=== PATIENT | female | born 1995 | race American Indian/Alaskan Native ===

== ENCOUNTER 2025-08-19 11:12 | Inpatient (IN) | payer MEDICAID ==
[~2025-08-19] VITALS: Ht 162.6 cm; Wt 68.0 kg
[2025-08-19] VITALS (14 sets, daily range): BP systolic 123–143; BP diastolic 71–86; PULSE 60–79; RESP 14–17; TEMP 98.3–98.5; O2SAT 94–100
[2025-08-19] MEDS ORDERED: DERMOPLAST 60ML BOTTLE TOP PRN (11:45)
[2025-08-19] MEDS ORDERED: WITCH HAZEL-GLYCERIN PAD TOP PRN (11:45)
[2025-08-19] MEDS ORDERED: PHISODERM TOP SOLN 240ML BTL TOP PRN (11:45)
[2025-08-19 12:16] LABS: Hemoglobin 10.3 g/dL (12.2-16.2)
[2025-08-19 12:18] LABS: Hematocrit 33.3 % (36.0-46.0); Mean Corpuscular Hemoglobin 22.4 pg (28.0-32.0); Mean Corpuscular Volume 72.2 fL (80.0-100.0); Nucleated Red Blood Cells % 0.2 %
[2025-08-19 12:32] LABS: Albumin 3.8 g/dL (3.2-4.8); Anion Gap 12 (5-15); BUN/Creatinine Ratio 7.3 (10.0-20.0); Carbon Dioxide 20 mmol/L (20-31); Chloride 107 mmol/L (98-107); Glucose 87 mg/dL (74-106); Potassium 3.8 mmol/L (3.5-5.1); Sodium 139 mmol/L (136-145); Total Protein 6.7 g/dL (5.7-8.2)
[2025-08-19 12:33] LABS: Bilirubin, Total 0.4 mg/dL (0.2-1.0)
[2025-08-19 12:36] LABS: Alanine Aminotransferase 86 U/L (7-40); Alkaline Phosphatase 439 U/L (46-116); Blood Urea Nitrogen 7 mg/dL (9-23); Calcium 7.7 mg/dL (8.7-10.4)
[2025-08-19] MEDS: LACTATED RINGER'S 1,000 ML IV SCH (12:49)
[2025-08-19 13:15] LABS: INR 1.02 (0.9-1.15); Partial Thromboplastin Time 34.3 SEC (24.5-34.5); Prothrombin Time 10.8 sec (9.3-11.8)
[2025-08-19] MEDS: ceFAZolin 2 GM/D5W50ml 50 ML IV ONE (13:20)
[2025-08-19] MEDS ORDERED: fentaNYL CITRATE 100 MCG/2 ML VL ONE (13:31)
[2025-08-19] MEDS ORDERED: ONDANSETRON HCL 4 MG/2 ML VIAL ONE (13:31)
[2025-08-19] MEDS ORDERED: MORPHINE SULF PF 5 MG/10 ML VIAL ONE (13:31)
[2025-08-19] MEDS ORDERED: KETOROLAC TROMETH 30 MG/ML 1ML VIAL ONE (13:31)
[2025-08-19 13:32] LABS: Urine Protein, UAD Negative (Negative)
[2025-08-19] MEDS ORDERED: BUPIVACAINE/DEXTROSE MPF 0.75% 2 ML AMP IT ONE (13:32)
--- NOTE | 2025-08-19 13:32 | DVH ---
LIMITED OB ULTRASOUND > 14 WKS: HISTORY: No care. TECHNIQUE: Multiple real-time grayscale images of the gravid uterus with duplex Doppler color flow and M-mode spectral analysis. COMPARISON: None FINDINGS: IUP single live fetus at 36 weeks 5 days based on composite averages of the BPD, head circumference, abdominal circumference and femur length. BPD measures 9.04 cm, corresponding to an estimated gestational age of 36 weeks 4 days. HC measures 32.28 cm, corresponding to an estimated gestational age of 36 weeks 3 days. AC measures 34.07 cm, corresponding to an estimated gestational age of 38 weeks 0 days. FL measures 6.99 cm, corresponding to an estimated gestational age of 35 weeks 6 days. Estimated weight 3131 grams, corresponding to the 16th percentile for gestational age. heart rate 145 beats per minute. MICHAELLE 6.1 cm MVP 2.5 cm Cervix is not visualized. Cephalic presentation Grade 3 placenta without previa or abruption, in anterior position. Attempted to evaluate anatomy, although limited evaluation due to gestational age and patient in active labor. 4-chamber heart was demonstrated. Bilateral kidneys appear within normal limits. Bladder appears normal. stomach appears distended with debris. IMPRESSION: 1. IUP single live fetus at 36 weeks 5 days AUA corresponding to an PAULY of 09/11/2025. 2. stomach appears distended with debris. 3. MICHAELLE measures 6.1 cm with MVP of 2.5 cm. 4. Limited anatomy as described above. 5. Refer to the separately dictated BPP exam report.
--- NOTE | 2025-08-19 13:34 | DVH ---
BIOPHYSICAL PROFILE HISTORY: UC prev. c/s TECHNIQUE: Multiple transabdominal real-time grayscale sonographic images through the gravid uterus of the fetus with duplex Doppler color flow and M-mode spectral analysis FINDINGS: BIOPHYSICAL PROFILE: breathing score: 2 movement score: 2 tone score: 2 Quantitative MICHAELLE score: 2 (MICHAELLE: 6.1 cm, mvp: 2.5 cm.) Total score: 8/8 The cervix Single live fetus in presentation. heart rate 178 beats per minute. Anterior Grade 3 placenta without previa or abruption Single live fetus at 39 weeks 6 days Biophysical profile score 8/8 corresponding to an PAULY of 08/20/2025 Estimated weight not calculated g IMPRESSION: 1. Biophysical profile score: 8/8 2. FHR: 178 bpm
[2025-08-19 13:50] LABS: Amphetamine Screen, Urine Neg (NEGATIVE); Barbiturate Scree,Urine Neg (NEGATIVE); Benzodiazephine Screen, Urine Neg (NEGATIVE); Cannabinoid Screen, Urine Neg (NEGATIVE); Cocaine Screen, Urine Neg (NEGATIVE); Opiate Scree,Urine Neg (NEGATIVE); Phencyclidine Screen, Urine Neg (NEGATIVE)
[2025-08-19 14:24] LABS: Protein, Urine 12.8 mg/dL (1-14)
[2025-08-19] MEDS ORDERED: HYDROmorphone HCL 2 MG/ML VL/or syr IV PRN (14:45)
[2025-08-19] MEDS ORDERED: diphenhydrAMINE HCL 50 MG/1 ML VL IV PRN (14:45)
[2025-08-19] MEDS ORDERED: NALOXONE HCL 0.4 MG/ML VIAL IV PRN (14:45)
[2025-08-19] MEDS: NALBUPHINE HCL 10 MG/1ml INJECTION IV ONE (14:45)
--- NOTE | 2025-08-19 15:16 | DVHHP2 ---
OB CC & HPI Date Date of Admission: Aug 19, 2025 Patient Identification: : 5 Para: 3 EDC: Aug 19, 2025 EGA: Patient has no idea she did have some ultrasounds patent no care. Chief Complaints: Reason for admission: active labor (We active labor 2-3 cm dilated 80% effaced membranes intact), section Indication for induction: other (-section early active labor) Indication for : desires repeat Admission Nurse Assessment Rev: Yes History of Present Complaints She denies smoke alcohol or drugs but blood tests show she has had failure to phentermine. Past Medical History Cardiac: No pertinent Hx Pulmonary: No pertinent Hx Central Nervous System: No pertinent Hx GI: No pertinent Hx Hemotology/Oncology: No pertinent Hx Hepatobiliary: No pertinent Hx Psychiatric: No pertinent Hx Musculoskeletal: No pertinent Hx Rheumotologic: No pertinent Hx Infectious Disease: No peritnent Hx ENT: No pertinent Hx Renal/: No pertinent Hx Endocrine: No pertinent Hx Dermatology: No pertinent Hx Past Surgical History: OB History OB History Care: None Ultrasounds: No ultrasounds Obstetrical Complications: None Medical Complications: None Allergies: Coded Allergies: NO KNOWN ALLERGIES (Unverified , 08/19/25) Current Medications Current Medications Medications (Trade) Dose Ordered Sig/Rajesh Route PRN Reason Start Time Stop Time Status Last Admin Lactated Ringer's 1,000 ml @ 125 mls/hr Q8H IV 08/19/25 11:45 08/19/25 12:49 Witch Carline (Tucks) 1 pad PRN PRN TOP PERINEAL AREA DISCOMFORT 08/19/25 11:45 Sodium Lauryl Sulfate (Phisoderm) 240 ml PRN PRN TOP PERINEAL AREA DISCOMFORT 08/19/25 11:45 Benzocaine (Dermoplast) 1 applic PRN PRN TOP PERINEAL AREA DISCOMFORT 08/19/25 11:45 Diphenhydramine HCl (Benadryl Injection) 25 mg Q4HP PRN IV FOR ITCHING 08/19/25 14:45 Ondansetron HCl (Zofran) 4 mg Q4HP PRN IV NAUSEA / VOMITING 08/19/25 14:45 Naloxone HCl (Narcan) 0.2 mg Q5M PRN IV For respirations < than 10/min 08/19/25 14:45 08/19/25 14:51 DC Hydromorphone HCl (Dilaudid Injection) 0.5 mg Q15M PRN IV SEVERE PAIN (7-10 PAIN SCALE) 08/19/25 14:45 08/19/25 15:16 Family & Social History Family/Social History Past Family/Social History: Contributory Blood Type: A+ Rubella: unknown RPR/VDRL: Unknown GBS Status: Unknown HBsAG: Unknown Review of Systems Constitutional: No symptom reported Ears, Nose, & Throat: No symptom reported Eyes: No symptom reported Pulmonary/Respiratory: No symptom reported Cardiovascular: No symptom reported Gastrointestinal: No symptom reported Genitourinary: No symptom reported Musculoskeletal: No symptom reported Skin: No symptom reported Psychiatric: No symptom reported Endocrine: No symptom reported Hemotologic/Lymphatic: No symptom reported OB Admission Exam Physical Exam Vitals: Vital Signs Date Time Temp Pulse Resp B/P (MAP) Pulse Ox O2 Delivery O2 Flow Rate FiO2 08/19/25 15:02 65 16 118/62 (80) 100 08/19/25 14:32 Room Air 08/19/25 14:32 98.0 98.0 HEENT: TMs Normal, Fontanelles Normal, Nasal Mucosa Normal, Eyes non-injected, Oropharynx Normal, PERRLA, Moist Membranes, EOMI Heart: Rhythm Normal Lungs: Clear Abdomen: Non tender Extremities: Normal Reflexes: Normal Cervical Dilatation: 3cm Effacement: 75% Station: -2 Membranes: Intact Heart Rate: 130's Accelerations: Accelerations Present Decelerations: No Decelerations Short Term Variability: Present Group Home Variability: Average (6-25) Contractions on Admission: None Intensity: Moderate OB Plan Plan Admitting Diagnosis: Prev. C/S in labor, Anemia, Fentanyl positive tox screen Plan: Section Other Plan: Services consult for safe environment for infant. RUFUS CEBALLOS DO Aug 19, 2025 15:16
--- NOTE | 2025-08-19 15:26 | DVHOP2 ---
Operative Report - 2 Report Details Date: 08/19/25 Preop Diagnosis: Unknown weeks gestation appears to be late 3rd trimester. Early active labor membranes intact previous -section Postop Diagnosis: Same moderate scar tissue Surgeon: Ankita Ceballos Anesthesiologist: JUAN Anesthesia: Regional Drains: Jeff catheter Implant: None Consent: The patient was informed of the risks and benefits of the procedure. These include but are not limited to complications of anesthesia, postoperative infection, incomplete relief of symptoms, recurrence of symptoms, damage to blood vessels, nerves and tendons, deep venous thrombosis, pulmonary embolism and possible need for repeat surgery in the future. Patient understands risks and as this complications not limited infection bleeding anesthesia acute chronic pain damage to adjacent organs bowel bladder ureters blood vessels and nerves. She understands the risks associated with blood transfusion not limited a HIV drug blood transfusion reaction her hepatitis. She has had the procedure before all questions answered and encouraged. Patient and baby's father adamantly wants to proceed. Complications: None Estimated Blood Loss: 650 cc Fluids: See anesthesia log Findings: Thick meconium, baby skin stained for meconium, Apgars 7 8 vigorous cry and tone on delivery Indications for Surgery: Review of -section early active labor Name of Procedure Performed Repeat low transverse section Procedure Details Procedure Details: Patient taken the operating room placed in sitting position spinal placed without difficulty she was then placed left lateral tilt prepped draped sterile fashion low Pfannenstiel made the scalpel through old scar down to the rectus fascia nicked in midline carried laterally vesicouterine peritoneum was entered with moderate difficulty and extreme care to avoid bladder damage peritoneal incision was extended vesicouterine peritoneum was taken off the lower uterine segment and the lower uterine segment was hourglassing very thin used a scalpel the injured gently and carefully entering the chorion amniotic placental sac. Fluid was copiously thick meconium. One hand placed lower uterine segment and infant's head and shoulders delivered without difficulty DeLee suctioned was performed immediate umbilical clamp was placed handed off to awaiting respiratory and nurses. Initially infant had 7 with vigorous tone on delivery. At this point umbilical blood sample was taken in an attempt to get a blood gas was tried through the cord but there was scant blood there most likely unsuccessful. This point placenta removed uterus exteriorized cleared of all clots and debris irrigated and the internal os was opened and assured that it was draining and 3 cm dilated. This point the hysterotomy incision was closed with 2 layers of 0 Vicryl 2nd layer incorporated the bladder vesical broad ligament flap. When complete hemostasis this point EBL 650 we cleared both gutters posterior cul-de-sac of all clots and debris placed the uterus inside reinspected lower uterine segment was the complete hemostasis instrument sponge lap count correct x1 this point peritoneum closed running continuous 2-0 Vicryl rectus fascia closed with a running continuous PDS the Camper's Carmella's fascia was undermined with Bovie secondary to severe scarring and then the Camper's Carmella's fascia was approximated with 2-0 chromic interrupted and the skin was closed with running continuous of 3-0 Prolene benzoin Steri-Strips placed ABD pad and pressure dressing placed as well as abdominal binder. Patient taken recovery room stable condition infant taken to nursery were certified surgical tech/first assistant while evaluate and treat. Specimen: Placenta, umbilical blood cord sampling Condition Good Disposition PACU RUFUS CEBALLOS DO Aug 19, 2025 15:26
[2025-08-19] MEDS: LACT. RINGERS/OXYTOCIN 20UNITS 1,000 ML IV ONE (17:00)
[2025-08-19] MEDS: ACETAMINOPHEN IV 1000 MG/100ML (10MG/ML) IV PRN (17:13)
[2025-08-19] MEDS ORDERED: LORazepam 2MG/ML-1ML VIAL IV ONE (17:45)
[2025-08-19] MEDS: ONDANSETRON HCL 4 MG/2 ML VIAL IV PRN (18:38)
[2025-08-19] MEDS: MAGNESIUM SULFATE 100 ML IV ONE (18:54)
[2025-08-19] MEDS: MAGNESIUM SULFATE 40MG/ML 1,000 ML IV SCH (19:32)
[2025-08-19] MEDS: FAMOTIDINE (10MG/ML) 2ML VL IV PRN (19:48)
[2025-08-19] MEDS: ceFAZolin 1GM/50ML 50 ML IV SCH (21:45)
[2025-08-19] MEDS ORDERED: KETOROLAC TROMETH 30 MG/ML 1ML VIAL IV PRN (22:30)
[2025-08-20] VITALS (13 sets, daily range): BP systolic 121–136; BP diastolic 58–87; PULSE 70–87; RESP 14–18; TEMP 97.4–98.5; O2SAT 96–99
--- NOTE | 2025-08-20 01:37 | DVHPN2 ---
Chief Complaints Patient reports: No new complaints, Feels better Nursing reports: No new complaints, No chest pain, No dizziness, No cough Objective Vitals Vital Signs Date Time Temp Pulse Resp B/P (MAP) Pulse Ox O2 Delivery O2 Flow Rate FiO2 08/19/25 19:30 16 96 Room Air 08/19/25 17:45 69 135/86 (102) 08/19/25 15:50 98.5 98.5 Medications Current Medications Medications (Trade) Dose Ordered Sig/Rajesh Route PRN Reason Start Time Stop Time Status Last Admin Acetaminophen (Ofirmev) 1,000 mg Q8HP PRN IV MODERATE PAIN (4-6 PAIN SCALE) 08/19/25 17:00 08/20/25 16:59 08/20/25 01:18 Benzocaine (Dermoplast) 1 applic PRN PRN TOP PERINEAL AREA DISCOMFORT 08/19/25 11:45 Cefazolin Sodium 50 ml @ 100 mls/hr Q8H IV 08/19/25 22:00 08/20/25 14:29 08/19/25 21:45 Diphenhydramine HCl (Benadryl Injection) 25 mg Q4HP PRN IV FOR ITCHING 08/19/25 14:45 Famotidine (Pepcid Injection) 20 mg Q12HR PRN IV ACID REFLUX 08/19/25 19:15 08/19/25 19:48 Ketorolac Tromethamine (Toradol Injection) 30 mg Q6HPRN PRN IV SEVERE PAIN (7-10 PAIN SCALE) 08/19/25 22:30 08/24/25 22:29 Lactated Ringer's 1,000 ml @ 125 mls/hr Q8H IV 08/19/25 11:45 08/19/25 21:38 Magnesium Sulfate 1,000 ml @ 50 mls/hr Q20H IV 08/19/25 17:45 08/19/25 19:32 Ondansetron HCl (Zofran) 4 mg Q4HP PRN IV NAUSEA / VOMITING 08/19/25 14:45 08/19/25 18:38 Sodium Lauryl Sulfate (Phisoderm) 240 ml PRN PRN TOP PERINEAL AREA DISCOMFORT 08/19/25 11:45 Witch Carline (Tucks) 1 pad PRN PRN TOP PERINEAL AREA DISCOMFORT 08/19/25 11:45 General: Normal Head/Eyes: Normal Neck: Normal Lungs: Normal Cardiovascular: Normal Abdominal: Normal (CLEAN DRY AND INTACT NO SIGN OF INFECTION MINIMAL LOCHIA) Musculoskeletal: Normal Extremities: Normal Skin: Normal Neurological: Normal Studies Laboratory Tests 08/19/25 12:04 Test 08/19/25 12:04 Range/Units Serum Glucose 87 74-106 mg/dL Ass/Plan Assessment POSTOP DAY 1 STABLE IMPROVED Plan [facility]. RUFUS CEBALLOS DO Aug 20, 2025 01:37
[2025-08-20 07:30] LABS: Hemoglobin 9.5 g/dL (12.2-16.2); Mean Corpuscular Hemoglobin 23.0 pg (28.0-32.0)
[2025-08-20 07:32] LABS: Hematocrit 29.7 % (36.0-46.0); Mean Corpuscular Volume 72.2 fL (80.0-100.0)
[2025-08-20 09:13] LABS: Anisocytosis Slight; Total Cells Counted 100.0 (100)
[2025-08-20] MEDS ORDERED: HYDROcodone-ACET 5/325MG TAB PO PRN ×2 (11:30)
[2025-08-20] MEDS: ceFAZolin 2 GM/D5W50ml 50 ML IV SCH (13:38)
[2025-08-20] MEDS: SIMETHICONE 80 MG CHEWABLE TABLET PO SCH (13:39)
[2025-08-20 14:48] LABS: Hematocrit 31.9 % (36.0-46.0)
[2025-08-20 14:51] LABS: Hemoglobin 10.0 g/dL (12.2-16.2); Mean Corpuscular Hemoglobin 22.6 pg (28.0-32.0); Mean Corpuscular Volume 72.1 fL (80.0-100.0)
[2025-08-20 15:16] LABS: Albumin 3.4 g/dL (3.2-4.8); Anion Gap 13 (5-15); BUN/Creatinine Ratio 10.0 (10.0-20.0); Carbon Dioxide 21 mmol/L (20-31); Chloride 105 mmol/L (98-107); Potassium 4.3 mmol/L (3.5-5.1); Sodium 139 mmol/L (136-145); Total Protein 5.9 g/dL (5.7-8.2)
[2025-08-20 15:17] LABS: Alanine Aminotransferase 62 U/L (7-40); Alkaline Phosphatase 365 U/L (46-116); Bilirubin, Total 0.2 mg/dL (0.2-1.0); Blood Urea Nitrogen 9 mg/dL (9-23); Calcium 7.5 mg/dL (8.7-10.4); Glucose 126 mg/dL (74-106)
[2025-08-20 15:33] LABS: Total Cells Counted 100.0 (100)
--- NOTE | 2025-08-20 16:24 | DVHINCON2 ---
Date of service: Aug 20, 2025 Referring Physician fabiana NOBLE Reason for Consultation concern for opiate withdrawal History of Present Illness HPI on admit: Unknown weeks gestation appears to be late 3rd trimester. Early active labor membranes intact previous -section PMHx - opiate addiction, no other known PMHx 29 female with history opiate dependence, here for late 3rd trimester contractions, early active labor s/p C-sx delivery. post-op noted to have some concern for opiate withdrawal. hospitalist consulted. Past Medical History opiate dependence Allergies: Coded Allergies: NO KNOWN ALLERGIES (Unverified , 08/19/25) Current Medications Current Medications Medications (Trade) Dose Ordered Sig/Rajesh Route PRN Reason Start Time Stop Time Status Last Admin Cefazolin Sodium 50 ml @ 100 mls/hr Q8H IV 08/19/25 22:00 08/20/25 11:34 DC 08/20/25 05:37 Acetaminophen (Ofirmev) 1,000 mg Q8HP PRN IV MODERATE PAIN (4-6 PAIN SCALE) 08/19/25 17:00 08/20/25 11:34 DC 08/20/25 10:50 Magnesium Sulfate 1,000 ml @ 50 mls/hr Q20H IV 08/19/25 17:45 08/20/25 11:34 DC 08/19/25 19:32 Famotidine (Pepcid Injection) 20 mg Q12HR PRN IV ACID REFLUX 08/19/25 19:15 08/20/25 11:34 DC 08/20/25 08:31 Ketorolac Tromethamine (Toradol Injection) 30 mg Q6HPRN PRN IV SEVERE PAIN (7-10 PAIN SCALE) 08/19/25 22:30 08/20/25 11:34 DC Cefazolin Sodium/ Dextrose 50 ml @ 50 mls/hr Q8HR IV 08/20/25 14:00 08/20/25 13:38 Docusate Sodium (Colace Capsule) 100 mg Q12HR PO 08/20/25 22:00 Dimethicone (Mylicon Tab) 80 mg QID PO 08/20/25 12:00 08/20/25 13:39 Ibuprofen (Motrin Tablet) 800 mg Q8HP PRN PO BREAKTHROUGH PAIN 08/20/25 14:00 Acetaminophen/ Hydrocodone Bitart ([place] 5/325MG Tab) 1 tab Q4HPRN PRN PO FOR PAIN 1-6 08/20/25 11:30 Acetaminophen/ Hydrocodone Bitart ([place] 5/325MG Tab) 2 tab Q4HPRN PRN PO FOR PAIN 7-10 08/20/25 11:30 Famotidine (Pepcid Tablet) 20 mg Q12HR PRN PO ACID REFLUX 08/20/25 11:30 Review of Systems ROS: abdominal pain at srugerical site Vital Signs Vital Signs Date Time Temp Pulse Resp B/P (MAP) Pulse Ox O2 Delivery O2 Flow Rate FiO2 08/20/25 15:00 97.7 80 16 132/75 (94) 98 97.7 08/20/25 07:30 Room Air Physical Exam GEN: Healthy appearing, well-developed, NAD. HEENT: NC/AT; MMM. CV: RRR, no m/r/g. LUNGS: CTAB, no w/r/c. ABD: surgival abdominal scar healing well CDI, normal BS. EXT: skin Warm, well perfused. no rashes. No clubbing, cyanosis, or edema. NEURO: Ambulating with no limitations. No focal deficits. Labs/Diagnostic Data Labs Test 08/20/25 14:30 08/20/25 06:54 08/19/25 13:00 08/19/25 12:04 Range/Units White Blood Count 31.2 *H 4.4-10.8 10^3/uL Red Blood Count 4.43 4.0-5.20 10^6/uL Hemoglobin 10.0 L 12.2-16.2 g/dL Hematocrit 31.9 L 36.0-46.0 % Mean Corpuscular Volume 72.1 L 80.0-100.0 fL Mean Corpuscular Hemoglobin 22.6 L 28.0-32.0 pg Mean Corpuscular Hemoglobin Concent 31.3 L 32.0-36.0 g/dL Red Cell Distribution Width 16.1 H 11.8-14.3 % Platelet Count 396 140-450 10^3/uL Mean Platelet Volume 10.1 6.9-10.8 fL Neutrophils (%) (Auto) 37.0-80.0 % Lymphocytes (%) (Auto) 10.0-50.0 % Monocytes (%) (Auto) 0.0-12.0 % Basophils (%) (Auto) 0.0-2.0 % Neutrophils # (Auto) 1.6-8.6 10 ^3/uL Lymphocytes # (Auto) 0.4-5.4 10 ^3/uL Monocytes # (Auto) 0-1.3 10 ^3/uL Differential Total Cells Counted 100.0 100 Neutrophils % (Manual) 86 H 37.0-80.0 Band Neutrophils % (Manual) 0 Lymphocytes % (Manual) 8 L 10.0-50.0 Monocytes % (Manual) 6 0-12 Eosinophils % (Manual) 0 0-7 Basophils % (Manual) 0 0.0-2.0 Metamyelocytes % (manual) 0 Myelocytes % (Manual) 0 Promyelocytes % (Manual) 0 Blast Cells % (Manual) 0 Reactive Lymphocytes 0 Platelet Estimate Adequate Sodium Level 139 136-145 mmol/L Potassium Level 4.3 3.5-5.1 mmol/L Chloride Level 105 98-107 mmol/L Carbon Dioxide Level 21 20-31 mmol/L Anion Gap 13 5-15 Blood Urea Nitrogen 9 9-23 mg/dL Creatinine 0.90 0.550-1.02 mg/dL Glomerular Filtration Rate Calc 89 >90 mL/min BUN/Creatinine Ratio 10.0 10.0-20.0 Serum Glucose 126 H 74-106 mg/dL Calcium Level 7.5 L 8.7-10.4 mg/dL Total Bilirubin 0.2 0.2-1.0 mg/dL Aspartate Amino Transferase (AST) 55 H 13-40 U/L Alanine Aminotransferase (ALT) 62 H 7-40 U/L Alkaline Phosphatase 365 H 46-116 U/L Total Protein 5.9 5.7-8.2 g/dL Albumin 3.4 3.2-4.8 g/dL Hypochromasia (manual) Moderate Anisocytosis (manual) Slight Microcytosis Moderate Schistocytes Few Magnesium Lvl (Mg Sulfate Therapy) 6.79 4.0-7.1 mg/dL Urine Color Light-yellow Yellow Urine Clarity Clear Clear Urine pH 6.5 5.0-9.0 Urine Specific Cowgill 1.004 1.001-1.035 Urine Protein Negative Negative Urine Ketones Negative Negative Urine Blood Negative Negative /uL Urine Nitrite Negative Negative Urine Bilirubin Negative Negative Urine Urobilinogen Normal Negative mg/dL Urine Leukocyte Esterase 2+ Negative /uL Urine RBC <1 0 - 4 /hpf Urine Microscopic WBC 14 H 0-5 /HPF Urine Squamous Epithelial Cells Few <5 /hpf Urine Bacteria Few H None Seen /hpf Urine Creatinine 16.53 L 30.0-125.0 mg/dL Urine Protein/Creatinine Ratio 0.77 Urine Glucose Normal Normal mg/dL Urine Total Protein 12.8 1-14 mg/dL Urine Opiates Screen Neg NEGATIVE Urine Fentanyl Screen Pos NEGATIVE Urine Barbiturates Screen Neg NEGATIVE Urine Phencyclidine Screen Neg NEGATIVE Urine Amphetamines Screen Neg NEGATIVE Urine Benzodiazepines Screen Neg NEGATIVE Urine Cocaine Screen Neg NEGATIVE Urine Cannabinoids Screen Neg NEGATIVE Eosinophils (%) (Auto) 0.1 0.0-7.0 % Eosinophils # (Auto) 0 0-0.8 10 ^3/uL Basophils # (Auto) 0 0-0.2 10 ^3/uL Nucleated Red Blood Cells 0.2 % Prothrombin Time 10.8 9.3-11.8 sec Prothrombin Time INR 1.02 0.9-1.15 Activated Partial Thromboplast Time 34.3 24.5-34.5 SEC Uric Acid 6.9 3.1-7.8 mg/dL Treponema pallidum Antibody Non-reactive Negative Hepatitis B Surface Antigen Negative Negative Hepatitis C Antibody Negative Negative HIV (1&2) Antibody Negative Negative Rubella Antibody Negative Assessment 29 female with history opiate dependence, here for late 3rd trimester contractions, early active labor s/p C-sx delivery. post-op noted to have some concern for opiate withdrawal. hospitalist consulted. HPI on admit: Unknown weeks gestation appears to be late 3rd trimester. Early active labor membranes intact previous -section PMHx - opiate addiction, no other known PMHx 08/20: on eval, no sweats, able to still, no tremors, no diaphoresis, no tachycardia,. Patient endorses opiate dependence. Cows score 0. Recommend prn control of any opiate withdrawal symptoms. Patient has climbing white count, could be secondary to stress from OR intervention. diagnosis: opiate dependence opiate withdrawal plan: - can consider broadening abx coverage to unasyn for added anaerobic coverage. - consider for anxiety use prn Benadryl 50 p.o. q.4 PRN - consider For abdominal cramps use Bentyl 10 mg q.6 PRN - consider For diarrhea use loperamide 4 mg p.o. prn b.i.d. - consider For nausea can use Zofran IV q.6 H prn - consider For headache recommend p.o. Tylenol 650 q.6 PRN - consider For muscle spasms recommend p.o. baclofen 10 mg q.8 H prn - recommend outpatient psychiatry/addiction psychiatry for suboxone/methadone treatments. - ok to use norco 10mg q6h prn if pain not controlled by tylenol > ibuprofen > toradol iv. appreciate consult. please reach out to hospitalist for any further recommendations. will signoff for now. Moris Gold MD Plan discussed with: Patient, Other Date of Service: Aug 20, 2025 Billing Provider: MORIS GUADRADO MD Common Visit Codes: CONSULT ONLY Consultation Codes: [id number] CONSULT <45MIN MORIS GUARDADO MD Aug 20, 2025 16:24
[2025-08-20] MEDS: IBUPROFEN 800 MG TAB PO PRN (17:46)
[2025-08-20] MEDS: FAMOTIDINE 20 MG TAB PO PRN (17:46)
[2025-08-20] MEDS: DOCUSATE SOD 100 MG CAP PO SCH (22:20)
[2025-08-21 03:30] VITALS: BP 130/76; PULSE 78; RESP 16; TEMP 98.6; O2SAT 99
--- NOTE | 2025-08-21 05:49 | DVHPN2 ---
Chief Complaints Patient reports: No new complaints, Feels better (POD #2) Nursing reports: No new complaints, No chest pain, No dizziness, No cough Objective Vitals Vital Signs Date Time Temp Pulse Resp B/P (MAP) Pulse Ox O2 Delivery O2 Flow Rate FiO2 08/21/25 03:30 98.6 78 16 130/76 (94) 99 98.6 08/20/25 18:30 Room Air Medications Current Medications Medications (Trade) Dose Ordered Sig/Rajesh Route PRN Reason Start Time Stop Time Status Last Admin Acetaminophen/ Hydrocodone Bitart ([place] 5/325MG Tab) 1 tab Q4HPRN PRN PO FOR PAIN 1-6 08/20/25 11:30 Acetaminophen/ Hydrocodone Bitart ([place] 5/325MG Tab) 2 tab Q4HPRN PRN PO FOR PAIN 7-10 08/20/25 11:30 Cefazolin Sodium/ Dextrose 50 ml @ 50 mls/hr Q8HR IV 08/20/25 14:00 08/20/25 22:20 Dimethicone (Mylicon Tab) 80 mg QID PO 08/20/25 12:00 08/20/25 22:20 Docusate Sodium (Colace Capsule) 100 mg Q12HR PO 08/20/25 22:00 08/20/25 22:20 Famotidine (Pepcid Tablet) 20 mg Q12HR PRN PO ACID REFLUX 08/20/25 11:30 08/20/25 17:46 Ibuprofen (Motrin Tablet) 800 mg Q8HP PRN PO BREAKTHROUGH PAIN 08/20/25 14:00 08/21/25 03:00 General: Normal Head/Eyes: Normal Neck: Normal Lungs: Normal Cardiovascular: Normal Abdominal: Normal (CLEAN DRY AND INTACT NO SIGN OF INFECTION MINIMAL LOCHIA) Musculoskeletal: Normal Extremities: Normal Skin: Normal Neurological: Normal Studies Laboratory Tests 08/20/25 14:30 Test 08/20/25 14:30 Range/Units Serum Glucose 126 H 74-106 mg/dL Ass/Plan Assessment POSTOP DAY 2 STABLE IMPROVED Plan see orders DC home DC summary RUFUS CEBALLOS DO Aug 21, 2025 05:49
--- NOTE | 2025-08-21 05:52 | DVHDS2 ---
Discharge Summary Date of Admission Aug 19, 2025 at 11:43 Date of Discharge: Aug 21, 2025 Admitting Diagnosis Labor previous Wounds: Clean dry intact Labs/Diagnostic Data: Laboratory Results Test 08/20/25 14:30 08/20/25 06:54 08/19/25 13:00 08/19/25 12:04 White Blood Count 31.2 10^3/uL (4.4-10.8) Red Blood Count 4.43 10^6/uL (4.0-5.20) Hemoglobin 10.0 g/dL (12.2-16.2) Hematocrit 31.9 % (36.0-46.0) Mean Corpuscular Volume 72.1 fL (80.0-100.0) Mean Corpuscular Hemoglobin 22.6 pg (28.0-32.0) Mean Corpuscular Hemoglobin Concent 31.3 g/dL (32.0-36.0) Red Cell Distribution Width 16.1 % (11.8-14.3) Platelet Count 396 10^3/uL (140-450) Mean Platelet Volume 10.1 fL (6.9-10.8) Neutrophils (%) (Auto) % (37.0-80.0) Lymphocytes (%) (Auto) % (10.0-50.0) Monocytes (%) (Auto) % (0.0-12.0) Basophils (%) (Auto) % (0.0-2.0) Neutrophils # (Auto) 10 ^3/uL (1.6-8.6) Lymphocytes # (Auto) 10 ^3/uL (0.4-5.4) Monocytes # (Auto) 10 ^3/uL (0-1.3) Differential Total Cells Counted 100.0 (100) Neutrophils % (Manual) 86 (37.0-80.0) Band Neutrophils % (Manual) 0 Lymphocytes % (Manual) 8 (10.0-50.0) Monocytes % (Manual) 6 (0-12) Eosinophils % (Manual) 0 (0-7) Basophils % (Manual) 0 (0.0-2.0) Metamyelocytes % (manual) 0 Myelocytes % (Manual) 0 Promyelocytes % (Manual) 0 Blast Cells % (Manual) 0 Reactive Lymphocytes 0 Platelet Estimate Adequate Sodium Level 139 mmol/L (136-145) Potassium Level 4.3 mmol/L (3.5-5.1) Chloride Level 105 mmol/L (98-107) Carbon Dioxide Level 21 mmol/L (20-31) Anion Gap 13 (5-15) Blood Urea Nitrogen 9 mg/dL (9-23) Creatinine 0.90 mg/dL (0.550-1.02) Glomerular Filtration Rate Calc 89 mL/min (>90) BUN/Creatinine Ratio 10.0 (10.0-20.0) Serum Glucose 126 mg/dL (74-106) Calcium Level 7.5 mg/dL (8.7-10.4) Total Bilirubin 0.2 mg/dL (0.2-1.0) Aspartate Amino Transferase (AST) 55 U/L (13-40) Alanine Aminotransferase (ALT) 62 U/L (7-40) Alkaline Phosphatase 365 U/L (46-116) Total Protein 5.9 g/dL (5.7-8.2) Albumin 3.4 g/dL (3.2-4.8) Hypochromasia (manual) Moderate Anisocytosis (manual) Slight Microcytosis Moderate Schistocytes Few Magnesium Lvl (Mg Sulfate Therapy) 6.79 mg/dL (4.0-7.1) Urine Color Light-yellow (Yellow) Urine Clarity Clear (Clear) Urine pH 6.5 (5.0-9.0) Urine Specific [place] 1.004 (1.001-1.035) Urine Protein Negative (Negative) Urine Ketones Negative (Negative) Urine Blood Negative /uL (Negative) Urine Nitrite Negative (Negative) Urine Bilirubin Negative (Negative) Urine Urobilinogen Normal mg/dL (Negative) Urine Leukocyte Esterase 2+ /uL (Negative) Urine RBC <1 /hpf (0 - 4) Urine Microscopic WBC 14 /HPF (0-5) Urine Squamous Epithelial Cells Few /hpf (<5) Urine Bacteria Few /hpf (None Seen) Urine Creatinine 16.53 mg/dL (30.0-125.0) Urine Protein/Creatinine Ratio 0.77 Urine Glucose Normal mg/dL (Normal) Urine Total Protein 12.8 mg/dL (1-14) Urine Opiates Screen Neg (NEGATIVE) Urine Fentanyl Screen Pos (NEGATIVE) Urine Barbiturates Screen Neg (NEGATIVE) Urine Phencyclidine Screen Neg (NEGATIVE) Urine Amphetamines Screen Neg (NEGATIVE) Urine Benzodiazepines Screen Neg (NEGATIVE) Urine Cocaine Screen Neg (NEGATIVE) Urine Cannabinoids Screen Neg (NEGATIVE) Eosinophils (%) (Auto) 0.1 % (0.0-7.0) Eosinophils # (Auto) 0 10 ^3/uL (0-0.8) Basophils # (Auto) 0 10 ^3/uL (0-0.2) Nucleated Red Blood Cells 0.2 % Prothrombin Time 10.8 sec (9.3-11.8) Prothrombin Time INR 1.02 (0.9-1.15) Activated Partial Thromboplast Time 34.3 SEC (24.5-34.5) Uric Acid 6.9 mg/dL (3.1-7.8) Treponema pallidum Antibody Non-reactive (Negative) Hepatitis B Surface Antigen Negative (Negative) Hepatitis C Antibody Negative (Negative) HIV (1&2) Antibody Negative (Negative) Rubella Antibody Negative Other Laboratory Tests 08/20/25 14:30 Brief Hx & Hospital Course: Patient come in in labor previous cesareans desires elective repeat cesareans Consults/Reason for consult None Operations or Procedures Repeat low transverse section Condition at Discharge: Good Final Diagnosis/Problems List Same moderate scar tissue Discharge Disposition: Home Discharge Instruct/Medications Diet: Regular Activity: Light activity Activity comment: Regressed 6 weeks fever precautions bleeding precautions pain precautions Follow Up/Referral: Wound check Dr. Ivan 1 week Medications: Discharge meds sent to pharmacy. Discharge Statement: "Patient was advised to return to the ER or call 911 if any headaches, dizziness, shortness of breath, chest pain, abdominal pain, bleeding, fevers, or worsening of medical condition. Patient was counseled about treatment plan, medications, possible side effects, patientverbalized understanding. All questions were answered to the best of my ability. This discharge took greater then 30 minutes in planning, reviewing documentation, counseling the patient, and discussing with other team members." ASSESSMENT ASSESSMENT Assessment Same moderate scar tissue Visit Coding OBGYN Date of Service: Aug 21, 2025 Billing Provider: RUFUS CEBALLOS DO CARDIOLOGY PHYSICIAN Common Visit Codes: 13087-[id number] INP/OBS CARE(HIGH), 59628-ATV/OBS SAME DATE (LOW), 38721-RIB/OBS SAME DATE (MOD) CARDIOLOGY PHYSICIAN Procedure Codes: 82478-GFYPN OB CARE, DEL RUFUS CEBALLOS DO Aug 21, 2025 05:52
[2025-08-21 07:44] LABS: Hematocrit 25.3 % (36.0-46.0); Hemoglobin 7.9 g/dL (12.2-16.2); Mean Corpuscular Hemoglobin 22.5 pg (28.0-32.0); Mean Corpuscular Volume 71.8 fL (80.0-100.0); Nucleated Red Blood Cells % 0.2 %
[2025-08-21] MEDS ORDERED: DOCU-265 PO (09:14)
[2025-08-21] MEDS ORDERED: IBUP-1455 PO (09:14)
[2025-08-21] MEDS ORDERED: HYDR-4902 PO (09:14)
[2025-08-21] MEDS ORDERED: FER325T PO (09:14)
[2025-08-21] MEDS ORDERED: CEPH250C PO (09:18)
[2025-08-21] MEDS: MEASLES, MUMPS & RUBELLA VAC(MMRII) 0.5ML SC ONE (10:15)
[2025-08-21 10:32] VITALS: BP 144/81; PULSE 80; RESP 16; TEMP 98.4
[2025-08-21 11:00] VITALS: BP 145/92
[2025-08-21 11:05] VITALS: BP 147/94
[2025-08-21] MEDS ORDERED: LABE200T33 PO (11:18)
[2025-08-21] MEDS ORDERED: LABETALOL HCL 200 MG TAB PO SCH (11:30)
[2025-08-21] MEDS: LABETALOL HCL 200 MG TAB PO SCH (12:05)
[2025-08-21] MEDS: TETANUS-DIPTH-ACEL PERTUSSIS 0.5ML SYR Tdap IM ONE (13:30)
[2025-08-21 15:00] VITALS: BP 117/56; PULSE 84; RESP 16; TEMP 97.8; O2SAT 97
[2025-08-22 03:07] LABS: Chlamydia Trachomatis, NAA Negative (Negative); Neisseria gonorrhoeae, NAA Negative (Negative)
== END 2025-08-21 15:56 | disposition home or self-care (01) | DRG 540 ==
LOC: UNDOADMOB 11:12 → LDRP 11:12 → OBSVTOIN 11:35 → INTOOBSV 11:35 → LDRP 11:43 → OBSVTOIN 11:43
PROVIDERS: ADMIT Obstetrics & Gynecology; ATTEND Obstetrics & Gynecology
PROC: 10D00Z1 Extraction of Products of Conception, Low, Open Approach (ICD-10-PCS; principal; 2025-08-19 13:38)
DX: O77.0 Labor and delivery complicated by meconium in amniotic fluid (principal); F11.23 Opioid dependence with withdrawal; O34.211 Maternal care for low transverse scar from previous cesarean delivery; Z37.0 Single live birth; O99.324 Drug use complicating childbirth; Z3A.39 39 weeks gestation of pregnancy
CPT/HCPCS: 36415; 59025; 76805; 76817; 76819; 80053; 80307; 81001; 82570; 83735; 84156; 84550; 85007; 85025; 85027; 85610; 85730; 86703; 86762; 86780; 86803; 86850; 86870; 86900; 86901; 87340; 94760; 94762; 96361; 96366; 96374; 96375; G0378; J0131; J1100; J1885; J2405; J2590; J3490; J7060